=== PATIENT | male | born 2000 | race Caucasian/White ===

== ENCOUNTER 2020-04-21 14:40 | Emergency (ER) | payer MEDICAID ==
[~2020-04-21] VITALS: Ht 172.7 cm; Wt 63.5 kg
[2020-04-21 14:47] VITALS: BP 112/44
--- NOTE | 2020-04-21 14:49 | NUR ---
PATIENT AMBULATED TO BED 3 WITH STEADY/EVEN GAIT.
--- NOTE | 2020-04-21 14:55 | NUR ---
XRAY AT BEDSIDE
--- NOTE | 2020-04-21 15:04 | NUR ---
19 Y/O M BROUGHT IN FROM HOME WITH C/C OF RIGHT FOOT AND ANKLE PAIN. PT STATES YESTERDAY AT 5PM, HE WAS SKATING ON A BOWL AND FELL ON HIS RIGHT SIDE, ROLLED HIS ANKLE. PT STATES PAIN STARTED TO RIGHT SIDE OF FOOT AND LEADS UP TO HIS ANKLE. PT STATES IT WAS SWOLLEN YESTERADY, HE TOOK MOTRIN IN THE EVENING WITH RELIEF. PT PRESENTS WITH NO SWELLING TO HIS RIGHT FOOT OR ANKLE. PT STATES PAIN UPON WALKING/WEIGHT ON FOOT, HOWEVER, NO PAIN AT REST. BED LOCKED IN LOWEST POSITION, SIDE RAILS X 1. PMH: ASTHMA MEDS: ALBUTEROL INHALER NKA
--- NOTE | 2020-04-21 15:04 | NUR ---
JUAN REYNA IS EVALUATING PATIENT AT BEDSIDE.
[2020-04-21 15:38] VITALS: BP 119/68
== END 2020-04-21 15:38 | disposition home or self-care (01) ==
LOC: MED 14:40
DX: S93.401A Sprain of unspecified ligament of right ankle, initial encounter (principal); Z88.0 Allergy status to penicillin; V00.131A Fall from skateboard, initial encounter; Y93.51 Activity, roller skating (inline) and skateboarding; Y92.89 Other specified places as the place of occurrence of the external cause; Y99.8 Other external cause status
CPT/HCPCS: 73610; 73630; 99284